=== PATIENT | female | born 1965 | race African-American/Black ===

== ENCOUNTER 2020-10-31 04:43 | Inpatient (IN) ==
[~2020-10-31 04:43] MED LIST: ACETAMINOPHEN 500 MG TABLET PO ONE; FAMOTIDINE 20 MG TABLET PO ONE; GABAPENTIN 400 MG CAPSULE PO ONE; LACTATED RINGERS 1,000 ML IV SCH
[2020-10-31] MEDS ORDERED: MIDAZOLAM 2 MG/2 ML VIAL ONE ×2 (06:04→07:45)
[2020-10-31] MEDS ORDERED: ROPIVACAINE 0.5% 30 ML VIAL ONE (06:05)
[2020-10-31] MEDS ORDERED: LIDOCAINE 1% 5 ML VIAL ONE (06:05)
[2020-10-31] MEDS ORDERED: DEXMEDETOMIDINE 200 MCG/2 ML VIAL ONE (06:05)
[2020-10-31] MEDS ORDERED: DEXAMETHASONE 4 MG/1 ML VIAL ONE (06:05)
[2020-10-31] MEDS ORDERED: LACTATED RINGERS 1,000 ML IV SCH (06:30)
[2020-10-31] MEDS ORDERED: VANCOMYCIN INJ 1,000 MG in SODIUM CHLORIDE 0.9% 250 ML IV ONE (06:30)
[2020-10-31] MEDS ORDERED: CLINDAMYCIN INJ 900 MG/50 ML PREMIX IV ONE (06:30)
[2020-10-31] MEDS ORDERED: FAMOTIDINE 20 MG TABLET ONE (06:37)
[2020-10-31] MEDS ORDERED: GABAPENTIN 400 MG CAPSULE ONE (06:37)
[2020-10-31] MEDS ORDERED: DIAZEPAM 5 MG TABLET ONE (06:37)
[2020-10-31] MEDS ORDERED: ACETAMINOPHEN 500 MG TABLET ONE (06:38)
[2020-10-31] MEDS ORDERED: carvediloL 3.125 MG TABLET ONE (06:40)
[2020-10-31] MEDS ORDERED: carvediloL 3.125 MG TABLET PO ONE (06:42)
[2020-10-31] MEDS ORDERED: ONDANSETRON 4 MG/2 ML VIAL IV PRN (07:34)
[2020-10-31] MEDS ORDERED: diphenhydrAMINE CAP 25 MG CAPSULE PO PRN (07:34)
[2020-10-31] MEDS ORDERED: ZALEPLON 5 MG CAPSULE PO PRN (07:34)
[2020-10-31] MEDS ORDERED: MAGNESIUM HYDROXIDE SUSP 30 ML UDCUP PO PRN (07:34)
[2020-10-31] MEDS ORDERED: MORPHINE 2 MG/1 ML SYRINGE IV PRN ×2 (07:34)
[2020-10-31] MEDS ORDERED: ONDANSETRON 4 MG/2 ML VIAL ONE (07:54)
[2020-10-31] MEDS ORDERED: PHENYLEPHRINE 1 MG/10 ML SYRINGE IV ONE (07:54)
[2020-10-31] MEDS ORDERED: BACITRACIN OINT 0.9 GM PACK TOP ONE (08:03)
[2020-10-31] MEDS ORDERED: BUPIVACAINE SPINAL 0.75% 2 ML AMP SPINAL ONE (08:08)
[2020-10-31] MEDS ORDERED: TRANEXAMIC ACID 1,000 MG/10 ML VIAL ONE (08:09)
[2020-10-31] MEDS: KETOROLAC 30 MG/1 ML VIAL IV SCH ×3 (11:08→20:31)
[2020-10-31] MEDS: LACTATED RINGERS 1,000 ML IV SCH ×2 (11:10→16:14)
[2020-10-31] MEDS: ceFAZolin 2,000 MG/50 ML DUPLEX IV SCH ×2 (12:01→20:23)
[2020-10-31] MEDS: carvediloL 3.125 MG TABLET PO SCH (20:24)
[2020-10-31] MEDS: DOCUSATE SODIUM 100 MG CAPSULE PO SCH (20:24)
[2020-11-01] MEDS: KETOROLAC 30 MG/1 ML VIAL IV SCH (01:38)
[2020-11-01] MEDS: FONDAPARINUX 2.5 MG/0.5 ML SYRINGE SUBCUT SCH (05:46)
[2020-11-01 05:59] LABS: Basophils % 0.2 % (0.0-0.8); Eosinophils # 0.1 10*3/uL (0.0-0.87); Eosinophils % 0.6 % (0.00-10.9); Hematocrit 32.2 VOL% (35.7-47.0); Hemoglobin 9.6 GM/DL (12.0-16.0); Immature Granulocytes % 0.5 %; Immature Granulocytes Absolute 0.05 #; Lymphocytes # 2.5 10*3/uL (1.4-4.0); Lymphocytes % 23.3 % (21.3-54.2); Mean Corpuscular HGB Conc 29.8 GM/DL (32-36); Mean Corpuscular Volume 78.7 FL (87-102); Mean Platelet Volume 10.6 FL (9.6-12.0); Monocytes % 8.7 % (1.7-12.7); Neutrophils % 66.7 % (38.7-73.9); Platelet Count 295 T/CUMM (130-400); Red Blood Count 4.09 MC/CUMM (3.8-5.5); Red Cell Distribution Width 14.1 % (9.3-17.3); White Blood Count 10.6 T/CUMM (4-12)
[2020-11-01] MEDS: LACTATED RINGERS 1,000 ML IV SCH (06:23)
[2020-11-01 06:26] LABS: Calcium 8.3 MG/DL (8.5-10.1); Osmolality,Calculated 271.8 MOS/KG (273-304); Potassium 3.7 MMOL/L (3.5-5.1)
[2020-11-01] MEDS: carvediloL 3.125 MG TABLET PO SCH ×2 (09:09→20:38)
[2020-11-01] MEDS: DOCUSATE SODIUM 100 MG CAPSULE PO SCH ×2 (09:09→20:38)
[2020-11-01] MEDS: ALPRAZolam 0.5 MG TABLET PO PRN (18:42)
[2020-11-02] MEDS: ALPRAZolam 0.5 MG TABLET PO PRN ×2 (00:52→09:05)
[2020-11-02] MEDS: FONDAPARINUX 2.5 MG/0.5 ML SYRINGE SUBCUT SCH (04:50)
[2020-11-02 04:56] LABS: Basophils % 0.2 % (0.0-0.8); Eosinophils # 0.5 10*3/uL (0.0-0.87); Eosinophils % 6.3 % (0.00-10.9); Hematocrit 28.2 VOL% (35.7-47.0); Hemoglobin 8.6 GM/DL (12.0-16.0); Immature Granulocytes % 0.4 %; Immature Granulocytes Absolute 0.03 #; Lymphocytes # 2.2 10*3/uL (1.4-4.0); Mean Corpuscular HGB Conc 30.5 GM/DL (32-36); Mean Corpuscular Volume 77.9 FL (87-102); Mean Platelet Volume 10.5 FL (9.6-12.0); Monocytes % 9.7 % (1.7-12.7); Neutrophils % 56.4 % (38.7-73.9); Platelet Count 244 T/CUMM (130-400); Red Blood Count 3.62 MC/CUMM (3.8-5.5); Red Cell Distribution Width 13.9 % (9.3-17.3); White Blood Count 8.2 T/CUMM (4-12)
[2020-11-02 05:17] LABS: Hypochromasia 1+; Microcytosis 1+; Ovalocytes Slight
[2020-11-02 05:18] LABS: Platelet Estimate Normal
[2020-11-02 08:33] VITALS: BP 136/85
[2020-11-02] MEDS: carvediloL 3.125 MG TABLET PO SCH (09:05)
[2020-11-02] MEDS: DOCUSATE SODIUM 100 MG CAPSULE PO SCH (09:05)
== END 2020-11-02 12:14 | disposition swing bed (61) | DRG 470 ==
LOC: N.SDSINP 04:43 → N.OR 04:43 → N.SDSINP 04:44 → N.3E 10:19
PROVIDERS: ADMIT Orthopaedic Surgery; ATTEND Orthopaedic Surgery